=== PATIENT | female | born 1965 | race Caucasian/White ===

== ENCOUNTER 2016-09-09 02:33 | Emergency (ER) | payer MEDICAID ==
[~2016-09-09] VITALS: Ht 162.6 cm; Wt 48.8 kg
--- NOTE | 2016-09-09 03:00 | NUR ---
TO ROOM 5B FOR ER EVAL
--- NOTE | 2016-09-09 03:10 | NUR ---
FRANCIS LORENZO AT BEDSIDE TALKING WITH PT.URINE SPECIMEN OBTAINED AND SENT TO LAB
[2016-09-09 03:24] LABS: *BILIRUBIN,URIN NEGATIVE (NEGATIVE); *BLOOD, URINE 2+ (NEGATIVE); *COLOR,URINE YELLOW (YELLOW); *KETONES,URINE NEGATIVE (NEGATIVE); *PROTEIN,URINE NEGATIVE (NEGATIVE); *UROBILINOGEN,URINE 0.2 E.U./dl (NORMAL); LEUKOCYTE ESTERASE ,URINE NEGATIVE (NEGATIVE); NITRITE, URINE NEGATIVE (NEGATIVE); UGLUCOSE NEGATIVE (NEGATIVE)
[2016-09-09 03:26] LABS: *CLARITY,URINE HAZY (CLEAR)
[2016-09-09] MEDS ORDERED: KETOROLAC TROMETHAMINE 30 MG INJ IVP ONE (03:30)
[2016-09-09 03:36] LABS: *URINE HCG, QUAL NEGATIVE (NEGATIVE); BACTERIA,URINE NONE SEEN /HPF (NONE SEEN); SQUAMOUS EPITHELIAL CELL,UR NONE SEEN /HPF (NONE SEEN); WBC,URINE 0-3 /HPF (0-3)
[2016-09-09] MEDS ORDERED: KETOROLAC TROMETHAMINE 30 MG INJ ONE (03:51)
[2016-09-09 03:56] LABS: CREATININE 1.9 mg/dL (0.6-1.3); POTASSIUM 3.4 mmol/L (3.5-5.1)
[2016-09-09 03:57] LABS: BASOPHILS # (AUTO) 0.3 K/uL (0.0-0.2); BASOPHILS % (AUTO) 2.9 % (0.0-2.0); EOSINOPHILS # (AUTO) 0.1 K/uL (0.0-0.7); EOSINOPHILS % (AUTO) 0.9 % (0.0-7.0); HEMATOCRIT 44.2 % (37.0-47.0); HEMOGLOBIN 14.7 g/dL (12.0-16.0); LYMPHOCYTES # (AUTO) 1.2 K/uL (0.8-4.8); LYMPHOCYTES % (AUTO) 11.9 % (20.5-51.5); MEAN CORPUSCULAR HEMOGLOBIN 30.5 uug (27.0-31.0); MEAN CORPUSCULAR HGB CONC 33 g/dL (32.0-37.0); MEAN CORPUSCULAR VOLUME 91.7 fL (81.0-99.0); MONOCYTES # (AUTO) 1.3 K/uL (0.1-1.30); MONOCYTES % (AUTO) 12.3 % (0.0-11.0); NEUTROPHILS # (AUTO) 7.5 K/uL (1.8-8.9); PLATELET COUNT (AUTO) 166 K/uL (150-450); RED BLOOD CELL COUNT(AUTO) 4.82 MIL/uL (4.20-5.40); RED CELL DISTRIBUTION WIDTH 11.4 % (11.5-14.5); WHITE BLOOD COUNT (AUTO) 10.4 K/uL (4.0-11.2)
[2016-09-09 04:02] LABS: ALBUMIN 3.6 g/dL (3.4-5.0); BILIRUBIN,DIRECT 0.1 mg/dL (0.0-0.2); BILIRUBIN,TOTAL 0.4 mg/dL (0.2-1.0); TOTAL PROTEIN, SERUM 7.3 g/dL (6.4-8.2)
--- NOTE | 2016-09-09 04:50 | NUR ---
PT STATES FEELING MUCH BETTER AFTER MEDICATION.PAIN 08/04
--- NOTE | 2016-09-09 05:02 | NUR ---
SALINE LOCK D/C CATH TIP INTACT.PT D/C HOME WITH [facility] EXPLAINED TO PT SHE VERBALIZED UNDERSTANDING
== END 2016-09-09 05:05 | disposition home or self-care (01) ==
LOC: ER 02:42
DX: N23 Unspecified renal colic (principal); N28.9 Disorder of kidney and ureter, unspecified
CPT/HCPCS: 36415; 83690; 84703; 85025; A4663; J1885

== ENCOUNTER 2016-10-16 20:11 | Emergency (ER) | payer MEDICAID, OTHER ==
[~2016-10-16] VITALS: Ht 162.6 cm; Wt 48.2 kg
[2016-10-16] MEDS ORDERED: vitamins PO (20:56)
[2016-10-16 21:29] LABS: *BLOOD, URINE 2+ (NEGATIVE); *CLARITY,URINE SLIGHTLY CLOUDY (CLEAR); *COLOR,URINE YELLOW (YELLOW); *KETONES,URINE NEGATIVE (NEGATIVE); *PROTEIN,URINE NEGATIVE (NEGATIVE); *URINE HCG, QUAL NEGATIVE (NEGATIVE); *UROBILINOGEN,URINE 0.2 E.U./dl (NORMAL); LEUKOCYTE ESTERASE ,URINE NEGATIVE (NEGATIVE); NITRITE, URINE NEGATIVE (NEGATIVE); PH,URINE 5.5 (5.0-8.0); UGLUCOSE NEGATIVE (NEGATIVE)
[2016-10-16 21:30] LABS: *BILIRUBIN,URIN 1+ (NEGATIVE)
[2016-10-16 21:51] LABS: BACTERIA,URINE RARE /HPF (NONE SEEN); SQUAMOUS EPITHELIAL CELL,UR FEW /HPF (NONE SEEN)
--- NOTE | 2016-10-16 22:40 | NUR ---
Patient discharged to home in stable conditon. Written and verbal after care instructions given. Patient verbalizes understanding of instructions.
--- NOTE | 2016-10-17 22:00 | NUR ---
CALLED THE PATIENT. 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
== END 2016-10-16 22:42 | disposition home or self-care (01) ==
LOC: ER 20:14
DX: N20.0 Calculus of kidney (principal)
CPT/HCPCS: 76775; 84703; A4663

== ENCOUNTER 2019-08-02 00:02 | Emergency (ER) | payer SELFPAY ==
[~2019-08-02] VITALS: Ht 160 cm; Wt 47.2 kg
--- NOTE | 2019-08-02 00:15 | NUR ---
Dr. Jiménez at bedside for MSE
[2019-08-02 01:01] LABS: *BILIRUBIN,URIN 1+ (NEGATIVE); *BLOOD, URINE 3+ (NEGATIVE); *CLARITY,URINE TURBID (CLEAR); *COLOR,URINE AMBER (YELLOW); *KETONES,URINE TRACE (NEGATIVE); *UROBILINOGEN,URINE 0.2 E.U./dl (NORMAL); LEUKOCYTE ESTERASE ,URINE NEGATIVE (NEGATIVE); NITRITE, URINE NEGATIVE (NEGATIVE); UGLUCOSE NEGATIVE (NEGATIVE)
[2019-08-02 01:26] LABS: BACTERIA,URINE NONE SEEN /HPF (NONE SEEN); RBC,URINE TNTC /HPF (0-3); SQUAMOUS EPITHELIAL CELL,UR FEW /HPF (NONE SEEN); WBC,URINE 0-3 /HPF (0-3)
[2019-08-02 02:27] LABS: BASOPHILS # (AUTO) 0.1 K/uL (0.0-8.0); BASOPHILS % (AUTO) 0.9 % (0.0-2.0); EOSINOPHILS # (AUTO) 0.2 K/uL (0.0-0.7); EOSINOPHILS % (AUTO) 2.6 % (0.0-7.0); HEMOGLOBIN 14.6 g/dL (10.9-14.3); LYMPHOCYTES # (AUTO) 2.3 K/uL (20.0-40.0); LYMPHOCYTES % (AUTO) 27.3 % (20.5-51.5); MEAN CORPUSCULAR HEMOGLOBIN 33.3 uug (24.7-32.8); MEAN CORPUSCULAR HGB CONC 35 g/dL (32.3-35.6); MEAN CORPUSCULAR VOLUME 95.5 fL (75.5-95.3); MONOCYTES # (AUTO) 0.8 K/uL (2.0-10.0); MONOCYTES % (AUTO) 9.5 % (0.0-11.0); NEUTROPHILS % (AUTO) 59.7 % (38.5-71.5); PLATELET COUNT (AUTO) 223 K/uL (179-408); WHITE BLOOD COUNT (AUTO) 8.5 K/uL (3.8-11.8)
[2019-08-02 02:30] LABS: CARBON DIOXIDE 24 mmol/L (21-32); CHLORIDE 105 mmol/L (98-107); CREATININE 0.9 mg/dL (0.6-1.3); GLUCOSE 107 mg/dL (74-106); POTASSIUM 4.4 mmol/L (3.5-5.1); UREA NITROGEN, BLOOD 14 mg/dL (7-18)
[2019-08-02 02:36] LABS: ALANINE AMINOTRANSFERASE 11 U/L (14-59); ALKALINE PHOSPHATASE 189 U/L (50-136); ASPARTATE AMINOTRANSFERASE 13 U/L (15-37); BILIRUBIN,DIRECT < 0.1 mg/dL (0.0-0.2); BILIRUBIN,TOTAL 0.4 mg/dL (0.2-1.0); TOTAL PROTEIN, SERUM 7.6 g/dL (6.4-8.2)
--- NOTE | 2019-08-02 04:40 | NUR ---
Patient discharged to home in stable conditon. Written and verbal after care instructions given. Patient verbalizes understanding of instructions. patient ambulating with steady gait
[2019-08-02 04:42] VITALS: BP 124/79
== END 2019-08-02 04:40 | disposition home or self-care (01) ==
LOC: ER 00:05
DX: R31.9 Hematuria, unspecified (principal); R80.9 Proteinuria, unspecified; Z60.2 Problems related to living alone
CPT/HCPCS: 36415; 85025; 85730; A4663